=== PATIENT | male | born 1940 | race Caucasian/White ===

== ENCOUNTER 2022-07-24 08:17 | Outpatient (RCR) | payer MEDICARE, SELFPAY ==
--- NOTE | ~2022-07-24 | XR_ITS ---
EXAMINATION: XR FOOT, RIGHT CLINICAL INFORMATION: Nonhealing wound question osteomyelitis first metatarsal head COMPARISON: None available. TECHNIQUE: AP, lateral, and oblique views of the right foot. FINDINGS: There is mild hallux valgus deformity at the first MTP joint. There are degenerative changes at the first MTP joint and midfoot with joint space narrowing and osteophyte formation. There is cortical irregularity of the medial side of the first metatarsal head, and some erosive changes. Findings are questionable for osteomyelitis. No fracture or dislocation. No soft tissue foreign body. Calcaneal spurs. Vascular calcification. XR/XR foot RT min 3V IMPRESSION: Arthritis and mild hallux valgus deformity at the first MTP joint. Question osteomyelitis of the first metatarsal head.
[2022-10-03 12:23] LABS: MANUAL DIFF FLAG NO
[2022-10-03 13:02] LABS: Basophils Absolute Auto 0.1 X10*3/uL (0.0-0.2); Basophils Percent Auto 0.8 % (0-2); Eosinophils Absolute Auto 0.1 X10*3/uL (0.0-0.4); Eosinophils Percent Auto 1.9 % (0-4); Hematocrit 41.2 % (42.0-52.0); Hemoglobin 13.6 g/dl (14.0-18.0); Imm Gran Abs Auto 0.03 X10*3/uL (0.00-0.03); Imm Gran Pct Auto 0.5 % (0.0-0.4); Lymphocytes Absolute Auto 1.3 X10*3/uL (1.2-4.9); Lymphocytes Percent Auto 20.8 % (20-40); Mean Corpuscular Hemoglobin 32.2 pg (27.0-33.0); Mean Corpuscular Volume 97.4 fL (80.0-98.0); Monocytes Absolute Auto 0.6 X10*3/uL (0.1-1.2); Monocytes Percent Auto 9.4 % (2-11); Neutrophils Absolute Auto 4.2 x10*3/uL (2.0-8.3); Neutrophils Percent Auto 66.6 % (45-73); Platelet Count 128 X10*3/uL (160-400); Red Blood Count 4.23 X10*6/uL (4.60-5.80); Red Cell Distribution Width 13.9 % (11.0-16.0); White Blood Count 6.4 X10*3/uL (4.8-10.8)
[2022-10-03 13:20] LABS: Estimated Average Glucose 160 mg/dL; Hemoglobin A1c % 7.2 %
[2022-10-03 13:40] LABS: Anion Gap 12 (12-20); Blood Urea Nitrogen 21 mg/dL (9-16); C Reactive Protein 0.35 mg/dL (< or = 0.50); Calcium 9.5 mg/dL (8.4-10.2); Carbon Dioxide 25 mmol/L (22-29); Chloride 106 mmol/L (96-108); Estimated Glomerular Filt Rate > 60; Glucose Random 192 mg/dL (60-115); Potassium 4.3 mmol/L (3.3-5.1); Sodium 139 mmol/L (135-145)
[2022-10-03 13:44] LABS: Erythrocyte Sedimentation Rate 13 MM/HR (0-15)
== END 2022-11-21 16:00 | disposition home or self-care (01) ==
LOC: HO.WCC 08:17
PROVIDERS: PCP Family Medicine; Referring Provider Podiatrist Foot & Ankle Surgery; Visit Provider Physician Assistant
DX: E11.621 Type 2 diabetes mellitus with foot ulcer (principal); L97.512 Non-pressure chronic ulcer of other part of right foot with fat layer exposed; L84 Corns and callosities; F10.90 Alcohol use, unspecified, uncomplicated
CPT/HCPCS: 11042; 15275; 36415; 73630; 80048; 83036; 84134; 85025; 85652; 86140; 99212; Q4187

== ENCOUNTER 2022-10-30 15:44 | Outpatient (REF) | payer MEDICARE, SELFPAY ==
--- NOTE | ~2022-10-30 | MR_ITS ---
EXAMINATION: MRI OF THE RIGHT FOOT WITHOUT AND WITH CONTRAST CLINICAL INFORMATION: Nonhealing wound. Osteomyelitis. COMPARISON: X-ray of the right foot September 2022. TECHNIQUE: MRI of the right foot is performed without and with contrast. [id number] includes the forefoot and distal midfoot. Contrast dose 10 mL of Gadavist. FINDINGS: GREAT TOE: There is irregularity of the skin in the plantar subcutaneous soft tissues overlying the head of the 1st metatarsal/sesamoids and the 1st metatarsophalangeal joint. This measures approximately 2.8 cm transverse and 2.7 cm craniocaudal and up to 3 mm in depth. The subcutaneous soft tissues just deep to the defect is predominantly low signal on both the T1 and T2-weighted sequences with minimal enhancement compatible with fibrotic change and mild inflammatory changes/cellulitis. No localized fluid collection or sinus tract noted. No evidence for bony erosion or signal abnormality just deep to the erosion. There is however mild to moderate arthrosis of the 1st metatarsophalangeal joint and hallux sesamoid joint manifested by marginal osteophytes and subchondral cystic change with some surrounding edema. There is expected concomitant mild enhancement of the areas of marrow edema related to degenerative changes. There is no significant effusion. IP joint: There is a prominent osseous protuberance along the medial aspect of the head of the proximal phalanx likely reflecting a prominent marginal osteophyte or deformity related to old trauma. Trace joint effusion. First tarsometatarsal joint: There is moderate osteoarthritis manifested by cartilage loss and prominent subchondral cystic change with marginal osteophytes. Additional osteoarthritis manifested by cartilage abnormality and subchondral cystic change across the 2nd and 4th tarsometatarsal joints and between the cuneiform joints. Arthrosis of the partially visualized naviculocuneiform joints manifested by subchondral cystic changes. There is prominent atrophy and fatty infiltration throughout the muscles of the visualized foot with mild edema and minimal enhancement. 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 There is some metallic artifact along the dorsal aspect of the great toe at the level of the metatarsal perhaps related to prior trauma or surgery. MR/MR foot RT wo/w con IMPRESSION: Findings most compatible with chronic ulceration with localized fibrotic and inflammatory changes in the plantar subcutaneous soft tissues along the plantar aspect of the foot at the level of the 1st metatarsal head/metatarsophalangeal joint. No MRI evidence for osteomyelitis. 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 Additional osteoarthritis of the IP joint of the great toe as well as the 1st, 2nd, and 4th tarsometatarsal joints. Additional arthrosis of the midfoot as detailed above. 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
== END 2022-10-30 15:45 | disposition home or self-care (01) ==
LOC: HO.MRI 15:44
PROVIDERS: PCP Family Medicine; Visit Provider Physician Assistant
DX: E11.621 Type 2 diabetes mellitus with foot ulcer (principal); L97.512 Non-pressure chronic ulcer of other part of right foot with fat layer exposed
CPT/HCPCS: 73720; A9585